=== PATIENT | female | born 1955 | race Caucasian/White ===

== ENCOUNTER 2017-08-18 07:15 | Emergency (ER) | payer MEDICARE, MEDICAID ==
[~2017-08-18] VITALS: Ht 165.1 cm; Wt 88.5 kg
--- NOTE | 2017-08-18 07:27 | NUR ---
RIGHT BREAST REDNESS X 1 WEEK, DISCHARGE X 1 DAY
--- NOTE | 2017-08-18 07:50 | NUR ---
PT MEDICATED ORDERED.
--- NOTE | 2017-08-18 08:15 | NUR ---
AT FOR I&D PROCEDURE.
--- NOTE | 2017-08-18 08:26 | NUR ---
Patient discharged to home in stable condition. Written and verbal after care instructions given. Patient verbalizes understanding of instruction.
[2017-08-18 08:28] VITALS: BP 132/69
== END 2017-08-18 08:30 | disposition home or self-care (01) ==
LOC: ER 07:20
DX: N61.1 Abscess of the breast and nipple (principal); F32.9 Major depressive disorder, single episode, unspecified; N64.4 Mastodynia
CPT/HCPCS: A4606; A6403; J1885; Z7610

== ENCOUNTER 2018-03-24 07:09 | Emergency (ER) | payer MEDICARE, MEDICAID ==
[~2018-03-24] VITALS: Ht 165.1 cm; Wt 88.5 kg
[2018-03-24 07:15] VITALS: BP 131/86
== END 2018-03-24 07:35 | disposition home or self-care (01) ==
LOC: ER 07:10
DX: F41.9 Anxiety disorder, unspecified (principal); F11.20 Opioid dependence, uncomplicated; F32.9 Major depressive disorder, single episode, unspecified; G89.29 Other chronic pain; F17.200 Nicotine dependence, unspecified, uncomplicated
CPT/HCPCS: A4606; Z7610

== ENCOUNTER 2019-04-21 16:20 | Emergency (ER) | payer MEDICAID, MEDICARE, OTHER ==
[~2019-04-21] VITALS: Ht 165.1 cm; Wt 93.0 kg
--- NOTE | 2019-04-21 17:00 | NUR ---
GOT BIT BY A SMALL DOG, LAC ON THE R HAND. COVERED WITH BANDAGE AT THIS TIME TO PREVENT BLEEDING. PATIENT A/OX4, KEPT COMFORTABLE. PENDING MD GLASGOW.
[2019-04-21] MEDS ORDERED: BENZOIN COMPOUND TINCT 60 ML BOTTLE ONE (17:24)
[2019-04-21] MEDS ORDERED: BACI/NEOM/POLY B OINT PKT 1 UDPKT PACKET ONE (17:25)
[2019-04-21] MEDS ORDERED: AMOX/CLAVULANATE 875 MG TABLET ONE (17:25)
[2019-04-21] MEDS ORDERED: TDAP [DIPH/PERTUSSIS/TET] 0.5 ML VIAL IM ONE ×2 (17:26→17:30)
[2019-04-21] MEDS ORDERED: BACI/NEOM/POLY B OINT PKT 1 UDPKT PACKET TP ONE (17:30)
[2019-04-21] MEDS ORDERED: AMOX/CLAVULANATE 875 MG TABLET PO ONE (17:30)
--- NOTE | 2019-04-21 18:19 | NUR ---
WOUND CLEANSED AND STERI-STRIP APPLIED, Rx provided, Patient discharged to home in stable condition. Written and verbal after care instructions given. Patient verbalizes understanding of instruction.
[2019-04-21 18:20] VITALS: BP 127/87
== END 2019-04-21 18:21 | disposition home or self-care (01) ==
LOC: ER 16:20
DX: S61.411A Laceration without foreign body of right hand, initial encounter (principal); F32.9 Major depressive disorder, single episode, unspecified; F41.9 Anxiety disorder, unspecified; F17.200 Nicotine dependence, unspecified, uncomplicated; W54.0XXA Bitten by dog, initial encounter; Y93.89 Activity, other specified; Y92.89 Other specified places as the place of occurrence of the external cause; Y99.8 Other external cause status
CPT/HCPCS: 90715